=== PATIENT | female | born 2000 | race Hispanic/Latino ===

== ENCOUNTER 2023-12-03 22:51 | Day surgery (SDC) | payer OTHER, SELFPAY ==
[2023-12-03 23:10] VITALS: BMI 24.3
[2023-12-04] MEDS ORDERED: hydrALAZINE 20 MG/ML VIAL SLOW IVP PRN (00:15)
== END 2023-12-04 01:30 | disposition home or self-care (01) ==
LOC: CSHLD/OP 22:51
PROVIDERS: ATTEND Family Medicine
DX: O99.891 Other specified diseases and conditions complicating pregnancy (principal); R10.30 Lower abdominal pain, unspecified; R87.612 Low grade squamous intraepithelial lesion on cytologic smear of cervix (LGSIL); O09.33 Supervision of pregnancy with insufficient antenatal care, third trimester; Z79.899 Other long term (current) drug therapy; Z3A.38 38 weeks gestation of pregnancy
CPT/HCPCS: 99283